=== PATIENT | male | born 1995 | race American Indian/Alaskan Native ===

== ENCOUNTER 2016-08-24 17:54 | Emergency (ER) | payer SELFPAY ==
[2016-08-24 18:37] LABS: Alanine Aminotransferase 10 units/L (7-56); Albumin 4.6 g/dL (3.9-5); Albumin/Globulin Ratio 1.9 %; Alkaline Phosphatase 52 units/L (35-129); Anion Gap 22 mmol/L; Blood Urea Nitrogen 12 mg/dL (9-20); Calcium 9.7 mg/dL (8.4-10.2); Carbon Dioxide 21 mmol/L (22-30); Chloride 100.6 mmol/L (98-107); Glucose 112 mg/dL (75-100); Lipase 19 units/L (13-60); Sodium 140 mmol/L (137-145)
[2016-08-24] MEDS ORDERED: SODIUM CHLORIDE FLUSH SYRINGE 10 ML IV PRN (18:39)
[2016-08-24] MEDS ORDERED: NACL ONE (18:44)
[2016-08-24 18:47] LABS: Basophils % (Auto) 0.6 % (0.0-1.8); Hematocrit 44.1 % (35.5-45.6); Hemoglobin 14.4 gm/dl (11.8-15.2); Mean Corpuscular HGB Conc 33 % (32-34); Mean Corpuscular Hemoglobin 30 pg (28-32); Mean Corpuscular Volume 93 fl (84-94); Platelet Count 225 K/mm3 (140-440); Red Blood Count 4.75 M/mm3 (3.65-5.03); Red Cell Distribution Width 14.2 % (13.2-15.2); White Blood Count 7.1 K/mm3 (4.5-11.0)
[2016-08-24] MEDS ORDERED: NORMODYNE IV ONE (18:52)
[2016-08-24] MEDS ORDERED: NACL 0.9% 1000 ML 1,000 ML IV ONE (18:53)
[2016-08-24] MEDS ORDERED: MORPHINE IV ONE (19:08)
--- NOTE | 2016-08-24 19:11 | Emergency Department Report ---
Entered by BREANNA TARIQ, acting as scribe for QUYNH CARTER PA. Chief Complaint: Abdominal Pain Stated Complaint: CHEST AND BACK PAIN, HX ULCERS Time Seen by Provider: 08/24/16 18:16 - HPI History of Present Illness: Pt c/o intermittent chest pain and back pain for 6 months, worsening today. Patient states the pain is severe today and described the pain as burning in quality. Patient was eating ribs prior to the onset of symptoms. Pt is belching a lot. Notes pain worsens with belching. Reports diaphoresis. Reports epigastric pain. Denies nausea and vomiting. PMHx of gastric ulcers. Denies Hx of HTN. Denies seeing a medical doctor for gastric ulcers, because he hasn't had time. - ROS Review of Systems: All systems are negative unless stated in the HPI above. - Exam Vital Signs: Vital Signs 08/24/16 18:00 Temperature 97.4 F L Pulse Rate 97 H Respiratory 22 Rate Blood Pressure 150/102 O2 Sat by Pulse 98 Oximetry Physical Exam: GENERAL: Patient is alert and oriented x 3. Diaphoretic. Patient looks sick. ABDOMEN: Epigastric tenderness present. Back: mid back pain present. MSE screening note: Focused history and physical exam performed. Due to findings the following was ordered: Chest pain protocol ordered with CTA of chest and abd. Morphine and fluids ordered. Discussed case with Dr. Suazo. ED Medical Decision Making - Lab Data Result diagrams: 08/24/16 18:05 08/24/16 18:05 - Medical Decision Making Patient seen by provider in triage area. Patient will get a CT scan of abdomen and back. Patient will be sent to the main ED for further analysis and treatment from another provider. ED Disposition for MSE Condition: Stable This documentation as recorded by the scribe,BREANNA TARIQ,accurately reflects the service I personally performed and the decisions made by me, QUYNH CARTER PA.
[2016-08-24 19:17] LABS: INR 0.79 (0.87-1.13)
[2016-08-24 19:18] LABS: Partial Thromboplastin Time 31.5 Sec. (24.2-36.6)
[2016-08-24 19:33] LABS: Creatine Kinase MB 1.1 ng/mL (0.0-4.0)
[2016-08-24 19:34] LABS: Creatine Kinase 112 units/L (55-170)
--- NOTE | 2016-08-24 19:37 | Cat Scan Report ---
FINAL REPORT PROCEDURE: CT angiogram abdomen with contrast. TECHNIQUE: Computerized axial tomographic angiography of the abdomen was performed after the IV injection of iodinated nonionic contrast. The image data was postprocessed using 2-dimensional multiplanar reformatted (MPR) and 3-dimensional (MIP and/or volume rendered) techniques. HISTORY: Chest pain and back pain, history of ulcers, rule out aortic dissection. COMPARISON: No prior studies are available for comparison. FINDINGS: The lung bases are clear. There are no pleural effusions. The heart size is normal. The liver, spleen and pancreas appear normal. The gallbladder is present. The adrenal glands are not enlarged. Both kidneys appear normal in size and configuration. The abdominal aorta has a normal caliber. There are no signs of an aortic dissection. The celiac axis, superior mesenteric artery and inferior mesenteric artery are widely patent. Both renal arteries are widely patent. There is no retroperitoneal adenopathy. The unopacified gastrointestinal tract is unremarkable as far as visualized. The regional skeleton appears intact. IMPRESSION: Normal study of the abdomen.
--- NOTE | 2016-08-24 19:41 | Cat Scan Report ---
FINAL REPORT PROCEDURE: CT angiogram chest with contrast. TECHNIQUE: Computerized tomographic angiography of the chest was performed after the IV injection of iodinated nonionic contrast including image processing. The image data was postprocessed using 2-dimensional multiplanar reformatted (MPR) and 3-dimensional (MIP and/or volume rendered) techniques. HISTORY: Chest and back pain, history of ulcers, rule out aortic dissection. COMPARISON: No prior studies are available for comparison. FINDINGS: The trachea and central bronchi appear normal. The thoracic aorta has a normal caliber without evidence of dissection. The pulmonary arteries enhance normally. There are no definite filling defects to indicate pulmonary embolism. There is no mediastinal adenopathy. The heart size is normal. There are no pleural effusions. The lungs are clear and well expanded. The thoracic skeleton appears intact. IMPRESSION: Normal study of the chest.
[2016-08-24] MEDS ORDERED: ZOFRAN IV ONE (19:42)
[2016-08-24] MEDS ORDERED: LIDOCAINE VISCOUS 2% PO ONE (19:44)
[2016-08-24] MEDS ORDERED: ALUM-MAG HYDROX-SIMETH 200-200-20MG/5ML PO ONE (19:44)
[2016-08-24 20:16] LABS: Urine Drugs of Abuse Note Disclamer
[2016-08-24 20:27] LABS: Bilirubin,Urine NEG (Negative); Blood,Urine NEG (Negative); Ketones,Urine NEG (Negative); Leukocyte Esterase,Urine NEG (Negative); Nitrite,Urine NEG (Negative); Protein,Urine <15 mg/dL mg/dL (Negative); Urobilinogen,Urine < 2.0 mg/dL (<2.0); WBC,Urine < 1.0 /HPF (0.0-6.0)
[2016-08-24] MEDS ORDERED: PEPCID IV ONE (20:52)
[2016-08-24] MEDS ORDERED: VALIUM IV ONE (20:52)
--- NOTE | 2016-08-24 20:57 | Emergency Department Report ---
HPI - General Chief Complaint: Abdominal Pain Time Seen by Provider: 08/24/16 18:39 - HPI HPI: The patient is 21-year-old male with a history of peptic ulcers, whom presents for evaluation of abdominal pain. The patient reports upper midline abdominal pain on and off for the past 8 months, recurring yesterday morning at 8 AM. He states that for the past one day his pain has been constant since onset, 10/10 severity, burning and throbbing in quality, exacerbated with retching. The patient denies fever, chills, night sweats, diarrhea, blood in the stool, dark tarry stool, dysuria, hematuria, flank pain, genital discharge, inability to pass flatus. ED Past Medical Hx - Past Medical History Previous Medical History?: Yes Additional medical history: gastric ulcer - Surgical History Past Surgical History?: No - Social History Smoking Status: Current Every Day Smoker Substance Use Type: Marijuana - Medications Home Medications: Home Medications Medication Instructions Recorded Confirmed Last Taken Type Famotidine [Pepcid] 20 mg PO BID #30 tablet 08/24/16 Unknown Rx Omeprazole Magnesium [PriLOSEC Otc] 20 mg PO QDAY #30 tablet. 08/24/16 Unknown Rx Ondansetron [Zofran TAB] 4 mg PO Q8HR PRN #15 tablet 08/24/16 Unknown Rx traMADol [Ultram 50 MG tab] 50 mg PO Q6HR PRN #15 tablet 08/24/16 Unknown Rx ED Review of Systems ROS: Stated complaint: CHEST AND BACK PAIN, HX ULCERS Other details as noted in HPI Constitutional: denies: fever ENT: denies: throat or neck pain Respiratory: denies: cough, shortness of breath Cardiovascular: denies: chest pain Endocrine: denies unexplained weight loss or gain Gastrointestinal: reports abdominal pain, nausea Genitourinary: denies: dysuria Musculoskeletal: denies: leg swelling Skin: denies: rash Neurological: denies: headache Hematological/Lymphatic: denies: easy bleeding or easy bruising Psych: denies sadness or hopelessness Physical Exam - Physical Exam Vital Signs: Vital Signs 08/24/16 08/24/16 08/24/16 18:00 19:30 19:51 Temperature 97.4 F L Pulse Rate 97 H 69 69 Respiratory 22 22 Rate Blood Pressure 150/102 115/79 Blood Pressure 115/79 [Right] O2 Sat by Pulse 98 98 Oximetry 08/24/16 20:17 Temperature Pulse Rate 59 L Respiratory 18 Rate Blood Pressure Blood Pressure 115/69 [Right] O2 Sat by Pulse 98 Oximetry Physical Exam: General: well-nourished, well-developed, no acute distress Head: Normocephalic, atraumatic Eyes: normal sclera ENT: Mucous membranes are pink and moist Neck: trachea midline, neck supple, No neck stiffness, no cervical adenopathy Respiratory: Breath sounds equal bilaterally, no wheezing, rales, or rhonchi Cardio: S1 and S2 present, no murmurs, rubs, gallops, capillary refill is brisk Abdomen: Normoactive bowel sounds, soft abdomen, epigastric tenderness to palpation present, no rigidity, no guarding or rebound tenderness Chest WALL/Back: No tenderness to palpation of the chest wall, no CVA tenderness with percussion Musc: No pitting edema Skin: No rash Neuro: no facial drooping, normal speech Psych: Normal affect ED Course Vital Signs 08/24/16 08/24/16 08/24/16 18:00 19:30 19:51 Temperature 97.4 F L Pulse Rate 97 H 69 69 Respiratory 22 22 Rate Blood Pressure 150/102 115/79 Blood Pressure 115/79 [Right] O2 Sat by Pulse 98 98 Oximetry 08/24/16 20:17 Temperature Pulse Rate 59 L Respiratory 18 Rate Blood Pressure Blood Pressure 115/69 [Right] O2 Sat by Pulse 98 Oximetry ED Medical Decision Making - Lab Data Result diagrams: 08/24/16 18:05 08/24/16 18:05 - Medical Decision Making The patient was seen and examined by myself. The patient is placed on a quality assurance monitor body and continuous pulse ox. On initial evaluation, the patient was found to be in no distress. Evaluation orders are placed. IV access is established and the patient is given Zofran for nausea, and IV morphine for pain. Lab results were non-concerning including WBC, hemoglobin, hematocrit, electrolytes, renal function, LFTs, lipase, and urinalysis. CT scan with contrast of the chest, abdomen, and pelvis is unremarkable and negative for emergent disease process. On reevaluation the patient states that his pain is improved but persisted. The patient given a GI cocktail and IV Valium for pain. The patient was reevaluated and reported that their symptoms were improved. The patient is stable for discharge with outpatient follow-up. The patient is given follow-up and return instructions. The patient expressed understanding and agreed with the plan. The patient is discharged in stable condition. Critical care attestation.: If time is entered above; I have spent that time in minutes in the direct care of this critically ill patient, excluding procedure time. ED Disposition Clinical Impression: Abdominal pain, acute, epigastric, Acute chest pain Disposition: DISCHARGED TO HOME OR SELFCARE Is pt being admited?: No Does the pt Need Aspirin: No Condition: Stable Instructions: Peptic Ulcer (ED), Gastritis (ED), Diet for Ulcers and Gastritis (ED), Acute Abdominal Pain (ED), Chest Pain (ED) Prescriptions: Famotidine [Pepcid] 20 mg PO BID #30 tablet Omeprazole Magnesium [PriLOSEC Otc] 20 mg PO QDAY #30 tablet. Ondansetron [Zofran TAB] 4 mg PO Q8HR PRN #15 tablet PRN Reason: Nausea traMADol [Ultram 50 MG tab] 50 mg PO Q6HR PRN #15 tablet PRN Reason: Pain Referrals: PRIMARY CARE,MD [Primary Care Provider] - 3-5 Days [facility] [Provider Group] - 3-5 Days Time of Disposition: 20:52
[2016-08-24 21:57] VITALS: BP 127/68
== END 2016-08-24 21:55 | disposition home or self-care (01) ==
LOC: ED 17:54
DX: R10.13 Epigastric pain (principal); R07.9 Chest pain, unspecified; K25.9 Gastric ulcer, unspecified as acute or chronic, without hemorrhage or perforation; F17.200 Nicotine dependence, unspecified, uncomplicated; F12.10 Cannabis abuse, uncomplicated
CPT/HCPCS: 36415; 71275; 74175; 80053; 80307; 81001; 82550; 82553; 83690; 84484; 85025; 85610; 85730; 96361; 96374; 96375; 99285; J2270; J2405; J3360; J7030; Q9967